=== PATIENT | male | born 1985 | race Hispanic/Latino ===

== ENCOUNTER 2023-10-08 17:11 | Emergency (ER) | payer SELFPAY ==
[2023-10-08] MEDS ORDERED: Acetaminophen 500 MG TAB ONE (17:20)
[2023-10-08] MEDS ORDERED: Ibuprofen 200 MG TAB ONE (17:22)
[2023-10-08 17:47] LABS: Bacteria/HPF None Seen HPF (None Seen); Bilirubin Negative (Negative); Blood, Urine Negative (Negative); CAUTI Indications for Culture Dysuria,urgency,freq; Clarity Clear (Clear); Glucose, Urine (Dipstick) Normal (Negative); Ketone, Urine Negative (Negative); Leukocyte Negative Leu/uL (Negative); Nitrite Negative (Negative); Protein, Urine (Dipstick) Negative (Neg-Trace); RBC/HPF 0-3 HPF (0-3); Specific Gravity, Urine 1.005 (1.002-1.036); Squamous Epithelial None Seen HPF (0-3); Urobilinogen Normal mg/dL (Less than 2); WBC/HPF 0-3 HPF (0-3)
[2023-10-08 17:50] LABS: Urine Culture Reflex No No
[2023-10-08 18:13] LABS: SARS-CoV-2 NAA Rapid Test Not Detected (NotDetected)
== END 2023-10-08 19:22 | disposition home or self-care (01) ==
LOC: ERS 17:11
DX: J10.1 Influenza due to other identified influenza virus with other respiratory manifestations (principal); N50.819 Testicular pain, unspecified; E78.00 Pure hypercholesterolemia, unspecified
CPT/HCPCS: 76870; 81001; 93976